=== PATIENT | female | born 1990 ===

== ENCOUNTER → 2018-07-19 | Outpatient (REF) | payer SELFPAY ==
[2018-07-19 22:07] LABS: INFLUENZA A AMPLIFICATION POSITIVE (NEGATIVE); INFLUENZA B AMPLIFICATION NEGATIVE (NEGATIVE)
== END ==
LOC: M LAB REF 11:57
PROVIDERS: ATTEND Physician Assistant
DX: J11.1 Influenza due to unidentified influenza virus with other respiratory manifestations (principal)